=== PATIENT | male | born 1970 | race Two or more races ===

== ENCOUNTER → 2021-08-16 | Emergency (ER) | payer OTHER ==
[~2021-08-16] VITALS: Ht 172.7 cm; Wt 73.9 kg
[~2021-08-16] MED LIST: ARNUITY ELLIP100 MCG; SERTRALINE20 MG/1 ML; TOPROL XL25 M1
== END | disposition left against medical advice (07) ==
LOC: ER 16:46
DX: Z53.21 Procedure and treatment not carried out due to patient leaving prior to being seen by health care provider (principal)